=== PATIENT | male | born 1950 | race Caucasian/White ===

== ENCOUNTER 2018-10-21 20:07 | Inpatient (IN) | payer OTHER, BC ==
[~2018-10-21] VITALS: Ht 175.3 cm; Wt 91.6 kg
--- NOTE | 2018-10-21 20:11 | NUR ---
Placed in room 1 . Placed on ekg monitor tech, blood pressure machine and pulse oximeter. To gown for exam. Side rails up. Report given to RODDY MERRILL.
--- NOTE | 2018-10-21 20:11 | NUR ---
Pt c/o Vomiting x 5 episodes with shakes and chills since about 1000 this AM. Pt states that he had a macaroni salad at [employer] yesterday and believes that he may have food poisoning. Pt states that he woke up this AM feeling nauseated progressively worsening and leading to vomiting today.
[2018-10-21 20:12] VITALS: BP_SYST 159
[2018-10-21] MEDS ORDERED: NACL 0.9% 1,000 ML IV ONE (20:21)
[2018-10-21] MEDS ORDERED: ONDANSETRON HCL 4 MG/2 ML VIAL IVP ONE (20:30)
--- NOTE | 2018-10-21 20:30 | NUR ---
Note undone in EDM - 10/21/18 at 2145 by SDNALEJANDRO # 20 gauge angiocath placed to LAC. Use of asceptic technique. Opsite placed over site. Blood return noted. Blood for lab drawn from site. Flushed with 10 cc of normal saline. No evidence of infiltration noted. Patient tolerated well.
[2018-10-21 20:40] LABS: BILIRUBIN,URINE 2+ (NEGATIVE); CLARITY/URINE CLEAR (CLEAR); COLOR,URINE ORANGE (YELLOW); GLUCOSE,URINE NEGATIVE (NEGATIVE); KETONES,URINE TRACE (NEGATIVE); LEUKOCYTE ESTERASE ,URINE NEGATIVE (NEGATIVE); NITRITE, URINE NEGATIVE (NEGATIVE); PH,URINE 5.5 (5.0-8.0); PROTEIN URINE 2+ (NEGATIVE)
[2018-10-21 20:42] LABS: BLOOD, URINE TRACE (NEGATIVE)
--- NOTE | 2018-10-21 20:45 | NUR ---
Dr. Douglas at bedside.
[2018-10-21 20:49] LABS: BASOPHILS % (AUTO) 0.3 % (0.0-2.0); EOSINOPHILS # (AUTO) 0.1 K/uL (0.0-0.4); EOSINOPHILS % (AUTO) 1.5 % (0.0-4.0); HEMATOCRIT 39.8 % (36-54); HEMOGLOBIN 13.7 g/dL (14.0-18.0); LYMPHOCYTES # (AUTO) 0.8 K/uL (1.0-5.5); LYMPHOCYTES % (AUTO) 13.4 % (20.5-51.5); MEAN CORPUSCULAR HEMOGLOBIN 34 pg (27-31); MEAN CORPUSCULAR HGB CONC 35 % (32-36); MEAN CORPUSCULAR VOLUME 98 fL (79.0-98.0); MONOCYTES # (AUTO) 0.4 K/uL (0.0-1.0); MONOCYTES % (AUTO) 6.9 % (1.7-9.3); NEUTROPHILS # (AUTO) 4.7 K/uL (1.8-7.7); NEUTROPHILS % (AUTO) 77.9 % (40.0-70.0); PLATELET COUNT (AUTO) 179 K/uL (130-430); RED BLOOD CELL COUNT(AUTO) 4.08 MIL/uL (4.2-6.2); RED CELL DISTRIBUTION WIDTH 14.6 % (9.0-15.0)
[2018-10-21 20:52] LABS: WBC,URINE 0-3 /HPF (0-3)
[2018-10-21 20:53] LABS: BACTERIA,URINE RARE /HPF (None Seen); MUCUS,URINE None Seen /LPF (None Seen)
[2018-10-21 21:04] LABS: PROTHROMBIN TIME 9.8 SECS (9.5-12.5)
--- NOTE | 2018-10-21 21:06 | NUR ---
Pt to CT via stretcher in stable condition.
[2018-10-21 21:09] LABS: ANION GAP 9 (5-15); CALCIUM 10.3 mg/dL (8.4-11.0); CHLORIDE 100 mmol/L (98-107); CREATININE 0.95 mg/dL (0.55-1.30); GLUCOSE 125 mg/dL (70-99); POTASSIUM 4.3 mmol/L (3.5-5.1); SODIUM SERUM 140 mmol/L (136-145); UREA NITROGEN, BLOOD 25 mg/dL (8-21)
[2018-10-21 21:10] LABS: GFR AFRICAN AMERICAN 101 mL/min (>90)
[2018-10-21 21:14] LABS: ALANINE AMINOTRANSFERASE 46 U/L (12-78); ALBUMIN 4.2 g/dL (3.4-4.8); ASPARTATE AMINOTRANSFERASE 40 U/L (10-37); LIPASE 174 U/L (73-393)
--- NOTE | 2018-10-21 21:20 | NUR ---
Pt returns from CT, no needs verbalized.
[2018-10-21] MEDS ORDERED: LIP40 PO (21:58)
[2018-10-21] MEDS ORDERED: LISI10TA5 PO (21:58)
--- NOTE | 2018-10-21 22:45 | NUR ---
Pt denies c/o pain or discomfort, no further nausea or vomiting. No needs verbalized. Family members at bedside.
--- NOTE | 2018-10-22 | NUR ---
No needs verbalized. Talking with family members at bedside.
[2018-10-22] MEDS ORDERED: LIP20 PO (00:26)
[2018-10-22] MEDS ORDERED: DULO60CA41 PO (00:26)
--- NOTE | 2018-10-22 00:30 | NUR ---
Pt to be Tele Hold per [employer] Supervisor.
[2018-10-22] MEDS ORDERED: metroNIDAZOLE 500 mg/NS 100 ML IV SCH (00:45)
[2018-10-22] MEDS ORDERED: LEVOFLOXACIN 500 MG/D5W 100 ML IV ONE (00:45)
--- NOTE | 2018-10-22 01:00 | NUR ---
No needs verbalized at this time.
--- NOTE | 2018-10-22 01:30 | NUR ---
Patient will be admitted to care of Dr. Panda. Admitted to Tele unit. Will go to room 110B. Belongings list completed. Summary report printed. Report will be given at bedside.
--- NOTE | 2018-10-22 01:33 | NUR ---
Admission Note Received patient from ER with diagnosis of Gastroenteritis. Initial Plan of Care discussed-patient verbalized understanding. Family at bedside. Oriented to room, call light, pain management and safety.
[2018-10-22 01:42] VITALS: BP_SYST 152
--- NOTE | 2018-10-22 02:19 | NUR ---
CONSULT REASON FOR CONSULT: NEUROLOGICAL MANIFESTATIONS PERSON I SPOKE WITH: KIM CONSULTING PHYSICIAN: DR. ROSALES MANAGER [employer]ER[employer] PHONE NUMBER: [phone] ORDERING PHYSICIAN: DR. CONNELLY
[2018-10-22] MEDS: KCL 20 mEq in D5/0.45NS 1000mL 1,000 ML IV SCH ×2 (02:27→19:56)
[2018-10-22] MEDS ORDERED: KCL 20 mEq in D5/0.45NS 1000mL 1,000 ML IV ONE (02:32)
[2018-10-22] MEDS ORDERED: metroNIDAZOLE 500 mg/NS 100 ML IV ONE (02:33)
--- NOTE | 2018-10-22 03:00 | NUR ---
ROUNDS Patient in bed sleeping at this time. No s/s of acute distress noted. Breathing is even and unlabored. IVF infusing well. Call light with patient. Bed alarm on. Will continue to monitor.
--- NOTE | 2018-10-22 05:00 | NUR ---
ROUNDS Patient in bed awake, watching TV, no signs of discomfort. Chest rise and fall even bilaterally. IVF infusing well. Patient denies any pain or discomfort at this time. Call light with patient. Bed alarm on. Will continue to monitor.
[2018-10-22] MEDS: metroNIDAZOLE 500 mg/NS 100 ML IV SCH ×3 (05:09→22:07)
--- NOTE | 2018-10-22 06:26 | NUR ---
CLOSING NOTES Patient in bed watching TV, AOx4, no s/s of acute distress. Breathing even and unlabored. Patient denies any pain or discomfort at this time. IVF infusing well, IV site patent, no signs of infiltration or infection noted. Urinal hanging on bedside niño. All needs met throughout shift. Fall and safety precautions maintained throughout shift. Will continue to monitor until patient care is endorsed to oncoming dayshift nurse.
[2018-10-22 06:58] LABS: BASOPHILS % (AUTO) 0.4 % (0.0-2.0); EOSINOPHILS # (AUTO) 0.1 K/uL (0.0-0.4); EOSINOPHILS % (AUTO) 2.6 % (0.0-4.0); HEMATOCRIT 35.8 % (36-54); HEMOGLOBIN 12.6 g/dL (14.0-18.0); LYMPHOCYTES # (AUTO) 0.9 K/uL (1.0-5.5); LYMPHOCYTES % (AUTO) 16.9 % (20.5-51.5); MEAN CORPUSCULAR HEMOGLOBIN 34 pg (27-31); MEAN CORPUSCULAR HGB CONC 35 % (32-36); MEAN CORPUSCULAR VOLUME 97 fL (79.0-98.0); MONOCYTES # (AUTO) 0.4 K/uL (0.0-1.0); MONOCYTES % (AUTO) 8.2 % (1.7-9.3); NEUTROPHILS # (AUTO) 3.9 K/uL (1.8-7.7); NEUTROPHILS % (AUTO) 71.9 % (40.0-70.0); PLATELET COUNT (AUTO) 153 K/uL (130-430); RED BLOOD CELL COUNT(AUTO) 3.68 MIL/uL (4.2-6.2); RED CELL DISTRIBUTION WIDTH 14.9 % (9.0-15.0); WHITE BLOOD COUNT (AUTO) 5.4 K/uL (4.8-10.8)
[2018-10-22 07:06] LABS: ALBUMIN 3.6 g/dL (3.4-4.8); CALCIUM 9.4 mg/dL (8.4-11.0); CREATININE 0.79 mg/dL (0.55-1.30); POTASSIUM 4.3 mmol/L (3.5-5.1); TOTAL BILIRUBIN 0.9 mg/dL (0.0-1.0)
[2018-10-22 07:38] VITALS: BP_SYST 144
--- NOTE | 2018-10-22 07:44 | NUR ---
AM NOTES RECEIVED PT IN BED A/O X4 DENIES ANY PAIN OR ORTHER DISCOMFORT. RES EVEN AND UNLABORED. VITALS STABLE . SAFETY AND FALL PRECAUTIONS MAINTAINED. NEEDS ATTENDED. NOT IN ACUTE DISTRESS. IVF INFUSING WELL NO S/S OF INFILTRATION NOTED. POC DISCUSSED WITH PT. VERBALIZED UNDERSTANDING. WILL CONTINUE TO MONITOR
--- NOTE | 2018-10-22 09:03 | NUR ---
Nutrition Update Chente Scale 16 noted. Pt admitted gastroenteritis. Diet: None ordered yet BMI: 29.8 RD to follow per nutrition care standards.
[2018-10-22 11:27] VITALS: BP_SYST 154
--- NOTE | 2018-10-22 12:00 | NUR ---
rounds pt stable not in acute distress. denies any pain at this time. poc discussed verbalized understanding. needs attended. kept comfortable
--- NOTE | 2018-10-22 13:15 | NUR ---
iv insertion pt c/o iv beeping a lot. new iv line started by eve student nurse under oberservation of aleena instructor #[id number] on left forarm no s/s of infiltration noted. good blood return flused well . pt tolerted well. ivf infusing well. old iv catheter removed. will continue to linden
[2018-10-22 15:35] VITALS: BP_SYST 159
--- NOTE | 2018-10-22 16:57 | NUR ---
rounds pt stable not in acute distress. denies any pain at this time.needs attended needs attended. kept comfortable
--- NOTE | 2018-10-22 17:59 | NUR ---
called md for high blood pressure called dr magaña for pt's high bp 159/89 . new order received for lisinopril 20mg po daily first dose now. clarified and informed dr magaña that pt takes lisinopril 10 [address] parra wanted to give lisinopril 20 mg po daily.
[2018-10-22] MEDS ORDERED: LISINOPRIL 20 MG TABLET PO ONE (18:15)
--- NOTE | 2018-10-22 18:45 | NUR ---
closing notes pt stable not in acute distress. denies any pain or orther discomfort. c/o of some hand tremors getting better from yesterday. pt seen by dr wright. no neurologial deficits noted. needs attended. family at bed side. will give report to night nurse
[2018-10-22 20:00] VITALS: BP_SYST 129
--- NOTE | 2018-10-22 20:00 | NUR ---
INITIAL NOTES: AWAKE ORIENTED X4. FAMILIES AT BEDSIDE. IVF INFUSING WELL. DENIES SOB ,CHEST PAIN ,N/V AND NO ABDOMINAL PAIN. VOIDS IN THE BATHROOM SAID NO BM THIS AFTERNOON HAD ONE EARLY AM.
--- NOTE | 2018-10-22 20:55 | NUR ---
notified dr. parra for sleeping an nausea meds with orders.
[2018-10-22] MEDS ORDERED: ENOXAPARIN SODIUM 40 MG/0.4 ML SYRINGE SUBCUT SCH (21:00)
[2018-10-22] MEDS ORDERED: TEMAZEPAM 15 MG CAPSULE PO PRN (21:00)
[2018-10-22] MEDS ORDERED: ONDANSETRON HCL 4 MG/2 ML VIAL IM PRN (21:00)
--- NOTE | 2018-10-22 22:10 | NUR ---
SLEEPING PILL AND IVPB GIVEN. DENIES PAIN.
--- NOTE | 2018-10-23 | NUR ---
SLEEPING DURING ROUNDS. IVF INFUSING. CALL LIGHT WITHIN REACH. NO DISTRESS.
--- NOTE | 2018-10-23 02:00 | NUR ---
VOIDED VIA URINAL .EVELYNE COLOR URINE. DENIES PAIN.
[2018-10-23 02:13] VITALS: BP_SYST 138
--- NOTE | 2018-10-23 04:30 | NUR ---
RESTING QUITELY DURING THIS ROUNDS.
[2018-10-23] MEDS: metroNIDAZOLE 500 mg/NS 100 ML IV SCH ×2 (05:36→13:03)
--- NOTE | 2018-10-23 07:00 | NUR ---
CLOSING: NO ACUTE CARDIOPULMONARY DISTRESS, DENIES N/V. ALL NEEDS WERE ATTENDED.AMBULATES TO BATHROOM WITHOUT PROBLEM.
[2018-10-23 07:28] LABS: BASOPHILS % (AUTO) 0.8 % (0.0-2.0); EOSINOPHILS # (AUTO) 0.3 K/uL (0.0-0.4); EOSINOPHILS % (AUTO) 6.7 % (0.0-4.0); HEMATOCRIT 37.8 % (36-54); HEMOGLOBIN 13.1 g/dL (14.0-18.0); LYMPHOCYTES # (AUTO) 1.1 K/uL (1.0-5.5); MEAN CORPUSCULAR HEMOGLOBIN 34 pg (27-31); MEAN CORPUSCULAR HGB CONC 35 % (32-36); MONOCYTES # (AUTO) 0.4 K/uL (0.0-1.0); MONOCYTES % (AUTO) 9.7 % (1.7-9.3); NEUTROPHILS # (AUTO) 2.4 K/uL (1.8-7.7); NEUTROPHILS % (AUTO) 56.8 % (40.0-70.0); PLATELET COUNT (AUTO) 135 K/uL (130-430); RED BLOOD CELL COUNT(AUTO) 3.83 MIL/uL (4.2-6.2); RED CELL DISTRIBUTION WIDTH 14.8 % (9.0-15.0); WHITE BLOOD COUNT (AUTO) 4.2 K/uL (4.8-10.8)
[2018-10-23 07:29] LABS: CALCIUM 9.5 mg/dL (8.4-11.0); CREATININE 0.71 mg/dL (0.55-1.30); POTASSIUM 4.1 mmol/L (3.5-5.1)
[2018-10-23 07:31] LABS: MEAN CORPUSCULAR VOLUME 99 fL (79.0-98.0)
[2018-10-23 08:00] VITALS: BP_SYST 166
[2018-10-23] MEDS ORDERED: LISINOPRIL 20 MG TABLET PO SCH (09:00)
--- NOTE | 2018-10-23 09:14 | NUR ---
Routine Patient resting comfortably in bed with no complaint of pain or discomfort. Scheduled medication given. Patient stable.
[2018-10-23] MEDS: KCL 20 mEq in D5/0.45NS 1000mL 1,000 ML IV SCH (09:44)
--- NOTE | 2018-10-23 09:47 | NUR ---
Routine Patient resting in bed. No distress noted. Changed IVF bag. Patient stable.
[2018-10-23 12:07] VITALS: BP_SYST 150
--- NOTE | 2018-10-23 12:09 | NUR ---
Routine Patient sitting on side of bed with no distress noted. Denies any pain. Patient stable at this time.
--- NOTE | 2018-10-23 13:07 | NUR ---
Routine Patient eating lunch on side of bed. Scheduled IV abx given per order. Patient stable at this time.
[2018-10-23] MEDS ORDERED: DICYCLOMINE HCL 10 MG/5 ML SOLUTION PO PRN (14:15)
--- NOTE | 2018-10-23 14:56 | NUR ---
Routine Patient resting in bed with and son at bedside. PRN med given per order. Patient stable at this time.
--- NOTE | 2018-10-23 19:40 | NUR ---
OPENING NOTE Received patient awake, AOx4 siting on bed, in no sign of distress. He was talking with visitors in room. IV is on LFA. Patient informed me Dr. Monk was just in and said he could go home. Will follow-up.
--- NOTE | 2018-10-23 20:00 | NUR ---
Blood pressure Blood pressure is elevated, 157/99. Patient denies pain. I let patient know I would give blood pressure medication and prepare discharge papers and he agreed.
[2018-10-23 20:34] VITALS: BP_SYST 157
--- NOTE | 2018-10-23 20:45 | NUR ---
elevated blood pressure / paged MD Patient did not have scheduled or PRN blood pressure medication and paged Dr. Monk.
[2018-10-23] MEDS ORDERED: METR500T PO (20:50)
--- NOTE | 2018-10-23 21:19 | NUR ---
Dr. Monk Spoke w/ Dr. Monk, informed him of elevated blood pressure and he ordered, give lisinopril 10mg, PO one time, now and he can go home.
--- NOTE | 2018-10-23 21:29 | NUR ---
Medication Patient was given, Lisinopril as ordered for elevated blood pressure. Discharge instructions and medications reviewed with patient. He verbalized understanding.
[2018-10-23] MEDS ORDERED: LISINOPRIL 10 MG TABLET (PRINIVIL) PO ONE (21:30)
[2018-10-23] MEDS ORDERED: LISINOPRIL 10 MG TABLET (PRINIVIL) ONE (21:38)
--- NOTE | 2018-10-23 21:44 | NUR ---
D/C Patient Patient given medication reconciliation form and D/C instructions. Exit Care provided. Patient verbalized understanding. MD discussed with patient the results and treatment provided. Ambulatory with steady gait for discharge to home. Patient in stable condition, ID band removed. IV catheter removed, intact and dressing applied, no active bleeding. Rx of Flagyl given. Patient educated on pain management. All belongings sent with patient.
== END 2018-10-23 21:37 | disposition home or self-care (01) | DRG 392 ==
LOC: SED 20:07 → STU 10-22 00:27 → SMU 10-22 14:53
PROVIDERS: ADMIT Family Medicine; ATTEND Family Medicine
DX: K52.9 Noninfective gastroenteritis and colitis, unspecified (principal); R25.1 Tremor, unspecified; E78.5 Hyperlipidemia, unspecified; I10 Essential (primary) hypertension; Z79.899 Other long term (current) drug therapy
CPT/HCPCS: 36415; 70450-TC; 80048; 80053; 81000-TC; 83605; 83690-TC; 83735-TC; 84484; 85025; 85610-TC; 87040-TC; 96361; 96374; 99285; J1650; J1956; J2405; J3490